=== PATIENT | male | born 1950 | race Caucasian/White ===

== ENCOUNTER → 2022-05-06 08:04 | Outpatient (CLI) | payer MEDICARE, OTHER, SELFPAY ==
[2022-05-07 04:42] LABS: BUN Creatinine Ratio 16.5 (6-22); Blood Urea Nitrogen 15 mg/dL (9-20); Calcium 8.9 mg/dL (8.4-10.2); Carbon Dioxide 29 mmol/L (22-32); Chloride 105 mmol/L (98-107); Cholesterol 162 mg/dL (140-199); Estimated Glomerular Filt Rate > 60 mL/min (>60); Glucose 99 mg/dL (80-110); HDL Cholesterol 48 mg/dL (40-60); HEMOLYSIS < 15 (0-50); LDL Cholesterol Calculated 100 mg/dL (<100); Potassium 4.6 mmol/L (3.4-5.1); Sodium 138 mmol/L (137-145); Triglycerides 69 mg/dL (35-150)
[2022-05-07 04:59] LABS: Prolactin 20.5 ng/mL (3.7-17.9)
[2022-05-07 05:13] LABS: Prostate Specific Antigen Scrn 2.64 ng/mL (0.1-4.0)
[2022-05-13 07:39] LABS: Percent Free Testosterone 2.21 % (1.50-4.20); Testosterone Free 8.71 ng/dL (5.00-21.00); Testosterone Total 394.1 ng/dL (264.0-916.0)
== END ==
PROVIDERS: PCP Family Medicine; Visit Provider Family Medicine
DX: I10 Essential (primary) hypertension (principal); Z12.5 Encounter for screening for malignant neoplasm of prostate; D35.2 Benign neoplasm of pituitary gland; E22.9 Hyperfunction of pituitary gland, unspecified; E78.5 Hyperlipidemia, unspecified; K63.5 Polyp of colon; R79.89 Other specified abnormal findings of blood chemistry; Z12.11 Encounter for screening for malignant neoplasm of colon; Z80.0 Family history of malignant neoplasm of digestive organs
CPT/HCPCS: 80048; 80061; 84146; 84402; 84403; G0103

== ENCOUNTER → 2022-06-03 10:03 | Outpatient (CLI) | payer MEDICARE, OTHER, SELFPAY ==
--- NOTE | 2022-06-03 10:09 | DI.MRI.S_ITS ---
PROCEDURE: MR BRAIN (PITUITARY) WWO CON INDICATIONS: Follow up pituitary adenoma TECHNIQUE: Noncontrast sagittal and axial FLAIR, axial gradient echo, axial diffusion and ADC through the brain. Thin-slice sagittal and coronal T1 spin echo, coronal T2 fast spin echo through the pituitary. After the administration contrast, optional dynamic coronal T1 spin echo, thin-slice coronal and sagittal T1 spin echo images through the pituitary fossa; axial and coronal and sagittal T1 spin echo with fat saturation through the brain. COMPARISON: [facility], MR, BRAIN (PITUITARY) W&WO CONTRAS, 07/19/2017, 10:08. FINDINGS: Image quality: Excellent. Pituitary Gland: Pituitary gland is within normal limits for size and contour. Pituitary gland demonstrates normal postcontrast enhancement with no focal areas of relative delayed postcontrast enhancement. No suprasellar mass. Pituitary infundibulum is midline and demonstrates normal postcontrast enhancement. The optic chiasm is normal. Cavernous sinus demonstrates normal postcontrast enhancement. CSF Spaces: Ventricles are normal in size and shape. Basal cisterns are patent. No extra-axial fluid collections. Brain: No intracranial bleeds or mass effects. There is mild, diffuse cerebral volume loss. There are minimal periventricular and subcortical white matter chronic microvascular ischemic changes. No abnormal intracranial enhancement. Olguin-white matter interface is intact. Diffusion weighted images demonstrate no acute ischemic insults. Brainstem is normal. Normal intravascular flow voids are present. Skull and face: Calvarial marrow is normal in signal. Orbits appear normal. Sinuses: Sinuses and mastoids are clear. IMPRESSION: 1. Stable examination compared to July 19, 2017. 2. No MRI evidence of pituitary adenoma. No sellar or suprasellar mass. Dictated by: Jovanna Chavez MD, PhD on 06/03/2022 at 13:00 Approved by: Jovanna Chavez MD, PhD on 06/03/2022 at 13:07
== END ==
PROVIDERS: PCP Family Medicine; Referring Provider Family Medicine; Visit Provider Family Medicine
DX: D35.2 Benign neoplasm of pituitary gland (principal); E22.9 Hyperfunction of pituitary gland, unspecified
CPT/HCPCS: 70553

== ENCOUNTER → 2022-11-24 09:29 | Outpatient (CLI) | payer MEDICARE, OTHER, SELFPAY ==
[2022-11-24 19:27] LABS: Cholesterol 138 mg/dL (140-199); HDL Cholesterol 44 mg/dL (40-60); LDL Cholesterol Calculated 82 mg/dL (<100); Triglycerides 58 mg/dL (35-150)
== END ==
PROVIDERS: PCP Family Medicine; Visit Provider Family Medicine
DX: I10 Essential (primary) hypertension (principal)
CPT/HCPCS: 80061

== ENCOUNTER → 2023-03-04 09:41 | Outpatient (CLI) | payer MEDICARE, OTHER, SELFPAY ==
[2023-03-04 20:29] LABS: Cholesterol 141 mg/dL (140-199); HDL Cholesterol 47 mg/dL (40-60); LDL Cholesterol Calculated 79 mg/dL (<100); Triglycerides 75 mg/dL (35-150)
== END ==
PROVIDERS: PCP Family Medicine; Visit Provider Family Medicine
DX: E78.2 Mixed hyperlipidemia (principal)
CPT/HCPCS: 80061

== ENCOUNTER → 2023-07-21 08:51 | Outpatient (CLI) | payer MEDICARE, OTHER, SELFPAY ==
[2023-07-21 20:16] LABS: Cholesterol 140 mg/dL (140-199); Glucose 88 mg/dL (80-110); HDL Cholesterol 43 mg/dL (40-60); LDL Cholesterol Calculated 86 mg/dL (<100); Triglycerides 56 mg/dL (35-150)
[2023-07-22 16:57] LABS: Hep C Virus Ab w/Reflex Quant NEGATIVE s/c (NEGATIVE)
== END ==
PROVIDERS: PCP Family Medicine; Visit Provider Family Medicine
DX: Z13.1 Encounter for screening for diabetes mellitus (principal); E78.2 Mixed hyperlipidemia; Z12.5 Encounter for screening for malignant neoplasm of prostate; Z11.59 Encounter for screening for other viral diseases; Z13.220 Encounter for screening for lipoid disorders
CPT/HCPCS: 80061; 82947; 86803; G0103

== ENCOUNTER → 2024-03-21 11:15 | Outpatient (CLI) | payer MEDICARE, OTHER, SELFPAY ==
[2024-03-21 21:08] LABS: Prolactin 21.6 ng/mL (3.7-17.9)
== END ==
PROVIDERS: PCP Family Medicine; Visit Provider Family Medicine
DX: D35.2 Benign neoplasm of pituitary gland (principal); E22.9 Hyperfunction of pituitary gland, unspecified
CPT/HCPCS: 84146; 84402; 84403

== ENCOUNTER → 2024-04-21 09:32 | Outpatient (CLI) | payer MEDICARE, OTHER, SELFPAY ==
[2024-04-21 19:10] LABS: Cholesterol 136 mg/dL (140-199); Glucose 95 mg/dL (80-110); HDL Cholesterol 53 mg/dL (40-60); LDL Cholesterol Calculated 72 mg/dL (<100); Triglycerides 57 mg/dL (35-150)
[2024-04-21 19:40] LABS: Prostate Specific Antigen Scrn 2.82 ng/mL (0.1-4.0)
== END ==
PROVIDERS: PCP Family Medicine; Visit Provider Family Medicine
DX: Z13.6 Encounter for screening for cardiovascular disorders (principal); Z12.5 Encounter for screening for malignant neoplasm of prostate; Z13.1 Encounter for screening for diabetes mellitus; Z11.59 Encounter for screening for other viral diseases; Z13.220 Encounter for screening for lipoid disorders
CPT/HCPCS: 80061; 82947; G0103

== ENCOUNTER → 2024-07-05 11:01 | Outpatient (CLI) | payer MEDICARE, OTHER, SELFPAY ==
[2024-07-05 20:00] LABS: Alanine Aminotransferase 31 IU/L (<50); Albumin 3.9 g/dL (3.5-5.0); Albumin Globulin Ratio 1.4 (1.0-2.8); Alkaline Phosphatase 47 U/L (38-126); Aspartate Aminotransferase 41 IU/L (17-59); BUN Creatinine Ratio 19.8 (6-22); Bilirubin Total 1.4 mg/dL (0.2-1.3); Blood Urea Nitrogen 16 mg/dL (9-20); Calcium 9.2 mg/dL (8.4-10.2); Carbon Dioxide 27 mmol/L (22-32); Chloride 103 mmol/L (98-107); Estimated Glomerular Filt Rate > 60 mL/min (>60); Globulin 2.7 g/dL (1.7-4.1); Glucose 97 mg/dL (80-110); HEMOLYSIS 17 (0-50); Potassium 4.4 mmol/L (3.4-5.1); Sodium 135 mmol/L (137-145); Total Protein 6.6 g/dL (6.3-8.2)
== END ==
PROVIDERS: PCP Family Medicine; Visit Provider Physician Assistant
DX: I10 Essential (primary) hypertension (principal); Z79.899 Other long term (current) drug therapy
CPT/HCPCS: 80053

== ENCOUNTER → 2024-09-01 08:56 | Outpatient (CLI) | payer MEDICARE, OTHER, SELFPAY ==
[2024-09-01 20:03] LABS: Add Manual Diff / Slide Review NO; Basophils Absolute Auto 100 /uL (0-100); Eosinophils Absolute Auto 100 /uL (0-450); Eosinophils Percent Auto 1.9 % (2-4); Hematocrit 39.8 % (41-53); Hemoglobin 13.7 g/dL (13.5-17.5); Lymphocytes Absolute Auto 2100 /uL (1100-4500); Lymphocytes Percent Auto 35.9 % (25-40); Mean Corpuscular HGB Conc 34.5 % (30-36); Mean Corpuscular Hemoglobin 30.4 PG (26-34); Mean Corpuscular Volume 88.1 fL (80-100); Monocytes Absolute Auto 400 /uL (0-900); Monocytes Percent Auto 6.9 % (3-14); Neutrophils Absolute Auto 3200 /uL (1500-7000); Neutrophils Percent Auto 54.3 % (50-75); Platelet Count 229 X10^3/uL (150-400); Red Blood Cell Count 4.52 X10^6/uL (4.5-5.9); Red Cell Distribution Width 13.7 % (11.6-14.8)
[2024-09-01 20:49] LABS: Prostate Specific Antigen Scrn 3.25 ng/mL (0.1-4.0)
[2024-09-08 08:11] LABS: Percent Free Testosterone 3.84 % (1.50-4.20); Testosterone Total 395.9 ng/dL (264.0-916.0)
== END ==
PROVIDERS: PCP Family Medicine; Referring Provider Family Medicine; Visit Provider Family Medicine
DX: Z12.5 Encounter for screening for malignant neoplasm of prostate (principal); D35.2 Benign neoplasm of pituitary gland; E22.9 Hyperfunction of pituitary gland, unspecified; R68.82 Decreased libido; I10 Essential (primary) hypertension; E78.2 Mixed hyperlipidemia; Z86.0100 Personal history of colon polyps, unspecified
CPT/HCPCS: 84146; 84402; 84403; 85025; G0103

== ENCOUNTER → 2025-01-11 12:29 | Outpatient (CLI) | payer MEDICARE, OTHER, SELFPAY | PROVIDERS: PCP Family Medicine; Visit Provider Physician Assistant | DX: R30.0 Dysuria (principal) | CPT/HCPCS: 87086 ==

== ENCOUNTER → 2025-02-14 09:57 | Outpatient (CLI) | payer MEDICARE, OTHER, SELFPAY ==
[2025-02-14 18:47] LABS: Add Manual Diff / Slide Review NO; Basophils Absolute Auto 0 /uL (0-100); Basophils Percent Auto 0.5 % (0-2); Eosinophils Absolute Auto 200 /uL (0-450); Eosinophils Percent Auto 2.4 % (2-4); Hematocrit 37.1 % (41-53); Lymphocytes Absolute Auto 2200 /uL (1100-4500); Lymphocytes Percent Auto 33.5 % (25-40); Mean Corpuscular HGB Conc 35.1 % (30-36); Mean Corpuscular Hemoglobin 30.5 PG (26-34); Mean Corpuscular Volume 87.1 fL (80-100); Monocytes Absolute Auto 500 /uL (0-900); Monocytes Percent Auto 7.4 % (3-14); Neutrophils Absolute Auto 3600 /uL (1500-7000); Neutrophils Percent Auto 56.2 % (50-75); Platelet Count 210 X10^3/uL (150-400); Red Blood Cell Count 4.26 X10^6/uL (4.5-5.9); Red Cell Distribution Width 13.9 % (11.6-14.8); White Blood Cell Count 6.5 X10^3/uL (4.5-11.0)
[2025-02-14 18:53] LABS: HEMOLYSIS < 15 (0-50); Iron 85 ug/dL (49-181)
[2025-02-14 19:08] LABS: Percent Iron Saturation 28 % (20-50); Total Iron Binding Capacity 307 ug/dL (261-462); Transferrin 241 mg/dL (206-381)
[2025-02-14 19:09] LABS: Prolactin 18.7 ng/mL (3.7-17.9)
[2025-02-14 19:22] LABS: Prostate Specific Antigen Scrn 3.21 ng/mL (0.1-4.0)
[2025-02-14 19:45] LABS: Vitamin B12 744 pg/mL (239-931)
== END ==
PROVIDERS: PCP Family Medicine; Visit Provider Family Medicine
DX: Z12.5 Encounter for screening for malignant neoplasm of prostate (principal); D64.9 Anemia, unspecified; R68.82 Decreased libido; Z87.438 Personal history of other diseases of male genital organs; E78.2 Mixed hyperlipidemia; I10 Essential (primary) hypertension; E22.9 Hyperfunction of pituitary gland, unspecified; D35.2 Benign neoplasm of pituitary gland
CPT/HCPCS: 82607; 83540; 83550; 84146; 85025; G0103

== ENCOUNTER → 2025-04-02 11:25 | Outpatient (CLI) | payer MEDICARE, OTHER, SELFPAY ==
--- NOTE | 2025-04-02 12:12 | DI.MRI.S_ITS ---
PROCEDURE: MR BRAIN (PITUITARY) WWO CON INDICATIONS: hyperprolactinemia TECHNIQUE: Noncontrast sagittal and axial FLAIR, axial gradient echo, axial diffusion and ADC through the brain. Thin-slice sagittal and coronal T1 spin echo, coronal T2 fast spin echo through the pituitary. After the administration contrast, optional dynamic coronal T1 spin echo, thin-slice coronal and sagittal T1 spin echo images through the pituitary fossa; axial and coronal and sagittal T1 spin echo with fat saturation through the brain. COMPARISON: [facility], MR, MR BRAIN (PITUITARY) O CON, 06/03/2022, 10:23. [facility], CT, CT HEAD WITHOUT CONTRAST, 09/09/2020, 16:16. (Additional prior imaging is not available for review from the archive at the time of this dictation.) FINDINGS: Image quality: Diagnostic, with note made of motion artifact. Pituitary Gland: The pituitary gland demonstrates normal signal and bulk. On the postcontrast imaging, no masses or abnormally enhancing areas are seen. The pituitary stalk and infundibulum have an unremarkable appearance. A normal appearing pituitary bright spot is seen posteriorly on the precontrast sagittal T1-weighted images. The optic chiasm and the ventral forebrain have an unremarkable appearance. CSF Spaces: Ventricles are normal in size and shape. Basal cisterns are patent. No extra-axial fluid collections. Brain: No intracranial bleeds or mass effects. No abnormal intracranial enhancement. Olguin-white matter interface is intact. Diffusion weighted images demonstrate no acute ischemic insults. Brainstem is normal. Normal intravascular flow voids are present. Note is made of age-appropriate brain parenchymal volume loss and chronic small vessel ischemic changes. Skull and face: Calvarial marrow is normal in signal. Orbits appear normal. Sinuses: Sinuses and mastoids are clear. IMPRESSION: Normal appearing pituitary gland, without masses or abnormal enhancement. Dictated by: Jack Jolly M.D. on 04/02/2025 at 11:55 Approved by: Jack Jolly M.D. on 04/02/2025 at 11:57
== END ==
PROVIDERS: PCP Family Medicine; Referring Provider Internal Medicine Endocrinology, Diabetes & Metabolism; Visit Provider Internal Medicine Endocrinology, Diabetes & Metabolism
DX: E22.1 Hyperprolactinemia (principal)
CPT/HCPCS: 70553; A9579

== ENCOUNTER → 2025-04-26 14:23 | Outpatient (CLI) | payer MEDICARE, OTHER, SELFPAY ==
[2025-04-26 19:46] LABS: Alanine Aminotransferase 31 IU/L (<50); Albumin 3.8 g/dL (3.5-5.0); Albumin Globulin Ratio 1.7 (1.0-2.8); Alkaline Phosphatase 52 U/L (38-126); Aspartate Aminotransferase 34 IU/L (17-59); BUN Creatinine Ratio 15.7 (6-22); Bilirubin Total 1.5 mg/dL (0.2-1.3); Blood Urea Nitrogen 16 mg/dL (9-20); Calcium 9.1 mg/dL (8.4-10.2); Carbon Dioxide 27 mmol/L (22-32); Chloride 103 mmol/L (98-107); Estimated Glomerular Filt Rate > 60 mL/min (>60); Globulin 2.3 g/dL (1.7-4.1); Glucose 99 mg/dL (70-99); HEMOLYSIS < 15 (0-50); Potassium 4.2 mmol/L (3.4-5.1); Sodium 136 mmol/L (137-145); Total Protein 6.1 g/dL (6.3-8.2)
[2025-04-26 20:04] LABS: Prolactin 20.4 ng/mL (3.7-17.9)
[2025-04-26 20:20] LABS: Testosterone 324 ng/dL (71.8-623)
== END ==
PROVIDERS: PCP Family Medicine; Visit Provider Internal Medicine Endocrinology, Diabetes & Metabolism
DX: E22.1 Hyperprolactinemia (principal)
CPT/HCPCS: 80053; 84146; 84403